=== PATIENT | female | born 1965 | race Caucasian/White ===

== ENCOUNTER 2016-11-23 07:07 | Day surgery (SDC) | payer BC ==
[2016-11-20 12:38] LABS: BLOOD UREA NITROGEN 9 mg/dL (7-18)
[2016-11-20 12:42] LABS: HEMATOCRIT 32.5 % (34.6-47.8); HEMOGLOBIN 9.7 g/dL (11.7-16.4); WHITE BLOOD COUNT 10.4 x10^3/uL (3.4-10)
[2016-11-20 12:51] LABS: ANISOCYTOSIS 2+; MICROCYTOSIS 2+
[2016-11-20 12:53] LABS: HYPOCHROMIA 1+; POLYCHROMASIA 1+
[~2016-11-23] VITALS: Ht 162.6 cm; Wt 92.7 kg
[~2016-11-23 07:07] MED LIST: CHOL200024 PO; CROM13SP5 NS; TETR15DR65 EACHEYE
[2016-11-23 08:02] VITALS: BP 133/83
[2016-11-23] MEDS ORDERED: LACTATED RINGERS 1,000 ML IV SCH (08:04)
[2016-11-23 08:29] LABS: HCG UR OBC PASS
[2016-11-23] MEDS ORDERED: FLUORESCEIN SODIUM 500 MG/5 ML ONE (08:30)
[2016-11-23] MEDS ORDERED: LIDOCAINE/PF 1%, 30ML ONE (08:30)
[2016-11-23] MEDS ORDERED: LIDOCAINE 1%-EPI 1:100K, 30ML INFIL ONE (08:40)
[2016-11-23] MEDS ORDERED: FENTANYL PF 100 MCG/2ML ONE ×3 (08:41→11:45)
[2016-11-23] MEDS ORDERED: MIDAZOLAM 1 MG/ML, 2ML ONE (08:41)
[2016-11-23] MEDS ORDERED: NEOSTIGMINE 1 MG/ML, 10ML ONE (08:57)
[2016-11-23] MEDS ORDERED: ONDANSETRON 2MG/ML, 2ML ONE (08:57)
[2016-11-23] MEDS ORDERED: GLYCOPYRROLATE 0.2MG/1ML ONE (08:57)
[2016-11-23] MEDS ORDERED: METOCLOPRAMIDE 5 MG/ML, 2ML ONE (08:57)
[2016-11-23] MEDS ORDERED: DEXAMETHASONE 4 MG/ML, 5ML ONE (08:57)
[2016-11-23] MEDS ORDERED: ROCURONIUM 10 MG/ML ONE (08:57)
[2016-11-23] MEDS ORDERED: PROPOFOL 10 MG/ML, 20ML ONE ×2 (08:57)
[2016-11-23] MEDS ORDERED: CEFAZOLIN 1,000 MG ONE (08:57)
[2016-11-23] MEDS ORDERED: FENTANYL PF 100 MCG/2ML IV PRN (09:30)
[2016-11-23] MEDS ORDERED: PROMETHAZINE 25 MG/ML, 1ML IV PRN (09:30)
[2016-11-23] MEDS ORDERED: MEPERIDINE/PF 25MG/0.5ML IVPush PRN (09:30)
[2016-11-23] MEDS ORDERED: METOPROLOL 1 MG/ML, 5ML IV PRN (09:30)
[2016-11-23] MEDS ORDERED: ALBUTEROL SULFATE 2.5 MG/3 ML NPPB PRN (09:30)
[2016-11-23] MEDS ORDERED: HYDROmorphone 1 MG/ML, 1ML IV PRN (09:30)
[2016-11-23] MEDS ORDERED: OXYcodone 5 MG/5 ML ORAL.SOL UDC PO PRN (09:30)
[2016-11-23] MEDS ORDERED: ACETAMINOPHEN 325 MG TABLET PO PRN (09:30)
[2016-11-23] MEDS ORDERED: ONDANSETRON 2MG/ML, 2ML IVPush PRN (09:30)
[2016-11-23] MEDS ORDERED: EPHEDRINE 50 MG/ML, 1ML IVPush PRN (09:30)
[2016-11-23] MEDS ORDERED: hydrALAzine 20 MG/ML, 1ML IV PRN (09:30)
[2016-11-23] MEDS ORDERED: HYDROmorphone 1 MG/ML, 1ML ONE (09:59)
[2016-11-23] MEDS ORDERED: LABETALOL 5MG/ML, 20ML ONE (10:54)
[2016-11-23] MEDS: LABETALOL 5MG/ML, 20ML IV PRN ×2 (10:55→11:01)
[2016-11-23] MEDS ORDERED: OXYcodone 5 MG/5 ML ORAL.SOL UDC ONE (11:45)
[2016-11-23] MEDS ORDERED: ACETAMINOPHEN 650 MG/20.3 ML UDC ONE (11:45)
[2016-11-23] MEDS ORDERED: OXYcodone/APAP 7.5/325MG TABLET ONE (15:58)
== END 2016-11-23 16:50 | disposition home or self-care (01) ==
LOC: OUT 07:07
PROVIDERS: ATTEND Obstetrics & Gynecology Gynecology
DX: D25.9 Leiomyoma of uterus, unspecified (principal); N72 Inflammatory disease of cervix uteri; Z98.890 Other specified postprocedural states
CPT/HCPCS: 36415; 58290; 80048; 81003; 81025; 84703; 85014; 85025; 88307; J0690; J1100; J1170; J2250; J2405; J2704; J2710; J2765; J3010; J3490; J7120